=== PATIENT | female | born 1950 | race Caucasian/White ===

== ENCOUNTER 2018-02-14 15:42 | Emergency (ER) | payer OTHER, MEDICARE ==
[~2018-02-14] VITALS: Ht 157.5 cm; Wt 98.3 kg
--- OUTSIDE RECORDS SUMMARY | ~2018-02-14 | XMS | Clinical Summary ---
Demographics + + + | Address | [address] | | | [place] [address] | + + + | Home Phone | | + + + | Preferred Language | Unknown | + + + | Marital Status | | + + + | Adventism Affiliation | 1013 | + + + | Race | Unknown | + + + | Ethnic Group | Unknown | + + + Author + + + | Author | [facility] | | | and [place] | + + + | Organization | [facility] | | | and [place] | + + + | Address | Unknown | + + + | Phone | Unavailable | + + + Support + + + + + | Name | Relationship | Address | Phone | + + + + + | Sheyla Timmons | [address] | [address] | | | | | [place] | | | | | [address] | | + + + + + Care Team Providers + +------+ + | Care Lan Administrator Name | Role | Phone | + +------+ + | Mark Melendez DO | PP | | + +------+ + Allergies + + + + + + | Active Allergy | Reactions | Severity | Noted | Comments | | | | | Date | | + + + + + + | Ampicillin | Hives | Medium | | | + + + + + + | Latex | Other (See Comments) | Low | 04/03/20 | Redness & skin | | | | | 15 | burning with CPAP | | | | | | mask | + + + + + + | Morphine Sulfate | Other (See Comments) | Low | | Head aches | + + + + + + Current Medications + + + +---------+------+------+-------+ | Prescription | Sig. | Disp. | Refills | Star | End | Statu | | | | | | t | Date | s | | | | | | Date | | | + + + +---------+------+------+-------+ | potassium chloride | | | | 09/1 | | Activ | | SA (KLOR-CON M10) | | | | 4/20 | | e | | 10 MEQ tablet | | | | 12 | | | + + + +---------+------+------+-------+ | furosemide (LASIX) | | | | 09/1 | | Activ | | 20 mg tablet | | | | 4/20 | | e | | | | | | 12 | | | + + + +---------+------+------+-------+ | citalopram | | | | 09/1 | | Activ | | (CELEXA) 40 mg | | | | 4/20 | | e | | tablet | | | | 12 | | | + + + +---------+------+------+-------+ | diltiazem | | | | 09/1 | | Activ | | (CARDIZEM LA) 180 mg | | | | 4/20 | | e | | 24 hr tablet | | | | 12 | | | + + + +---------+------+------+-------+ | multivitamin | | | | / | | Activ | | (THERAGRAN) per | | | | 4/20 | | e | | tablet | | | | 12 | | | + + + +---------+------+------+-------+ | zolpidem (AMBIEN) | Take 10 mg by mouth | | | | | Activ | | 10 mg tablet | nightly as needed | | | | | e | | | for Sleep. | | | | | | + + + +---------+------+------+-------+ | hydrocortisone | Take 20 mg by mouth | | | | | Activ | | (CORTEF) 10 mg | Daily. | | | | | e | | tablet | | | | | | | + + + +---------+------+------+-------+ | prochlorperazine | Take 10 mg by mouth | | | | | Activ | | (COMPAZINE) 10 mg | every 6 hours as | | | | | e | | tablet | needed. | | | | | | + + + +---------+------+------+-------+ | esomeprazole | Take 80 mg by mouth | | | | | Activ | | (NEXIUM) 40 mg | every morning | | | | | e | | capsule | (before breakfast). | | | | | | + + + +---------+------+------+-------+ | 27-1 MG | Take 1 tablet by | | | | | Activ | | TABS | mouth Daily. | | | | | e | + + + +---------+------+------+-------+ | folic acid 1 mg | Take 1 mg by mouth | | | | | Activ | | tablet | Daily. | | | | | e | + + + +---------+------+------+-------+ | sucralfate | Take 1 g by mouth 4 | | | | | Activ | | (CARAFATE) 1 g | times daily. Patient | | | | | e | | tablet | states that she is | | | | | | | | taking once at night | | | | | | + + + +---------+------+------+-------+ | methocarbamol | Take 1 tablet by | 60 | 1 | 10/3 | | Activ | | (ROBAXIN) 750 mg | mouth every 6 hours | tablet | | 1/20 | | e | | tablet | as needed for Muscle | | | 15 | | | | | spasms. | | | | | | + + + +---------+------+------+-------+ | Lactulose | Take 15-30 mLs by | 240 mL | 0 | 10/3 | | Activ | | Encephalopathy 10 | mouth Daily as | | | 1/20 | | e | | g/15 mL SOLN | needed | | | 15 | | | | | (constipation). | | | | | | + + + +---------+------+------+-------+ | HYDROmorphone | Take 2.5-3 tablets | 120 | 0 | 11/3 | | Activ | | (DILAUDID) 4 MG | by mouth every 4 | tablet | | 0/20 | | e | | tabletIndications: | hours as needed for | | | 15 | | | | S/P lumbar fusion | Pain. | | | | | | + + + +---------+------+------+-------+ | celecoxib | Take 200 mg by mouth | | | | | Activ | | (CELEBREX) 200 mg | 2 times daily. | | | | | e | | capsule | | | | | | | + + + +---------+------+------+-------+ Active Problems + + + | Problem | Noted Date | + + + | Nocturnal hypoxemia due to obesity, refusing CPAP | 04/27/2015 | + + + | Opioid overuse causing sedation, pulmonary compromise | 04/27/2015 | + + + | Spondylolisthesis of lumbar region | 02/28/2015 | + + + | Lumbar stenosis with neurogenic claudication | 02/28/2015 | + + + | Lumbar radiculopathy | 02/28/2015 | + + + | Facet arthropathy, lumbar (HCC) | 02/28/2015 | + + + | S/P lumbar fusion | 02/28/2015 | + + + | [place] disease (HCC) | 02/28/2015 | + + + | Chronic, continuous use of opioids | 02/28/2015 | + + + | Morbid obesity with BMI of 40.0-44.9, adult ([facility]) | 02/28/2015 | + + + | Current use of steroid medication | 02/28/2015 | + + + | BACK PAIN | | + + + | SCIATICA | | + + + | REDUCTION MAMMOPLASTY, HX OF | | + + + + + | Overview: ICD-10 Record update | + + Family History + + +------+ + | Medical History | Relation | Name | Comments | + + +------+ + | Cancer | Father | | | + + +------+ + | Mental illness | Father | | | + + +------+ + | Heart attack | Mother | | | + + +------+ + | Arthritis | | | | + + +------+ + | Hypertension | | | | + + +------+ + + +------+ + + | Relation | Name | Status | Comments | + +------+ + + | Brother | | Alive | | + +------+ + + | Child | | Alive | | + +------+ + + | Child | | Alive | | + +------+ + + | Father | | | Suicide | | | | (Age | | | | | 73) | | + +------+ + + | Mother | | | IN | | | | (Age | | | | | 76) | | + +------+ + + | Sister | | Alive | | + +------+ + + | Sister | | Alive | | + +------+ + + Social History + +-------+ +--------+------+ | Tobacco Use | Types | Packs/Day | Years | Date | | | | | Used | | + +-------+ +--------+------+ | Never Smoker | | | | | + +-------+ +--------+------+ + +---+---+---+ | Smokeless Tobacco: | | | | | Never Used | | | | + +---+---+---+ + + +---------+ + | Alcohol Use | Drinks/We | oz/Week | Comments | | | ek | | | + + +---------+ + | Yes | 0 | 0.0 | drink every couple years | | | Standard | | | | | drinks or | | | | | | | | | | equivalen | | | | | t | | | + + +---------+ + + + + | Sex Assigned at | Date Recorded | | | | + + + | Not on file | | + + + Last Filed Vital Signs + + + + | Vital Sign | Reading | Time Taken | + + + + | Blood Pressure | 153/102 | 11/04/20151523 PDT | + + + + | Pulse | 91 | 11/04/20151523 PDT | + + + + | Temperature | 37.5 C (99.5 F) | 04/28/2015799 PST | + + + + | Respiratory Rate | 16 | 11/04/20151523 PDT | + + + + | Oxygen Saturation | 96% | 04/28/2015829 PST | + + + + | Inhaled Oxygen | - | - | | Concentration | | | + + + + | Weight | 96.6 kg (213 lb) | 11/04/20151523 PDT | + + + + | Height | 157.5 cm (5' 2") | 11/04/20151523 PDT | + + + + | Body Mass Index | 38.96 | 11/04/2015 1524 PDT | + + + + Plan of Treatment + + + + + | Health Maintenance | Due Date | Last Done | Comments | + + + + + | Hepatitis C | | | | | Screening | 9 | | | + + + + + | Vaccine: | | | | | Dtap/Tdap/Td (1 - | 8 | | | | Tdap) | | | | + + + + + | BREAST CANCER | | | | | SCREENING (MAMM Q2 | 9 | | | | YEARS 50-74) | | | | + + + + + | Colorectal Cancer | | | | | Screening | 9 | | | | (Colonoscopy) | | | | + + + + + | Vaccine: | | | | | Pneumococcal 65+ | 4 | | | | Low/Medium Risk (1 | | | | | of 2 - PCV13) | | | | + + + + + | Vaccine: Influenza | | | | | (#1) | 8 | | | + + + + + Implants + +------+--------+ +--------+--------+--------+ | Implanted | Type | Area | Manufacture | Device | Expira | Model | | | | | r | | tion | / | | | | | | Identi | Date | Serial | | | | | | fier | | / Lot | + +------+--------+ +--------+--------+--------+ | Graft Infuse Bone Kit Xxs - | | Right: | [employer] | | 11/21/ | [id number] | | [id number]: Qty: 1 on | | Spine | DANEK - DIV | | 2016 | 0 / | | 04/23/2015 by Alan Kramer, | | | [employer] | | | /[id number] | | MD | | Lumbar | - SFDK | | | [id number] | + +------+--------+ +--------+--------+--------+ | Jayesh Ti Prebent Lordtc 100mm - | | Right: | NUVASIVE - | | | [id number] | | [id number]: Qty: 2 | | Spine | NVSV | | | 0 / / | | on 04/23/2015 by Alan Kramer | | | | | | | | A, MD | | Lumbar | | | | | + +------+--------+ +--------+--------+--------+ | Screw Set - | | Right: | NUVASIVE - | | | [id number] | | [id number]: Qty: 8 on | | Spine | NVSV | | | 0 / / | | 04/23/2015 by Alan Kramer, | | | | | | | | MD | | Lumbar | | | | | + +------+--------+ +--------+--------+--------+ | Screw Polyax Prcpt 7.5x50mm - | | Right: | NUVASIVE - | | | [id number] | | [id number]: Qty: 3 | | Spine | NVSV | | | 0A / / | | on 04/23/2015 by Alan Kramer | | | | | | | | MD Brain | | Lumbar | | | | | + +------+--------+ +--------+--------+--------+ | Graft Infuse Bone Kit Xs - | | Right: | [employer]OR | | 03/24/ | [id number] | | [id number]: Qty: 1 on | | Spine | DANEK - DIV | | 2016 | 0 / | | 04/23/2015 by Alan Kramer, | | | [employer] | | | /[id number] | | MD | | Lumbar | - SFDK | | | [id number] | + +------+--------+ +--------+--------+--------+ | Putty [place] 10cc Dbm - | | Right: | OSTEOTECH - | | 01/21/ | [id number] | | [id number]: Qty: 1 | | Spine | OSTT | | 2018 | /[id number] | | on 04/23/2015 by Alan Kramer | | | | | | 0-025 | | A MD | | Lumbar | | | | /NA | + +------+--------+ +--------+--------+--------+ | Bone Chips Cancellous 30c | | Right: | [employer] [place] | | 09/01/ | [id number] | | 4-10 - [id number]: | | Spine | INC - LIAI | | 2020 | S | | Qty: 1 on 04/23/2015 by Williams, | | | | | | /[id number] | | Alan De La Paz MD | | Lumbar | | | | 5-028 | | | | | | | | / | + +------+--------+ +--------+--------+--------+ | Imp Spn Intbdy Xlw | | Right: | NUVASIVE - | | | [id number] | | [id number] - | | Spine | NVSV | | | 5 / / | | [id number]: Qty: 1 on | | | | | | | | 04/23/2015 by Alan Kramer, | | Lumbar | | | | | | | | | | | | | + +------+--------+ +--------+--------+--------+ | Tlif Oblique [id number] 12deg | | Right: | NUVASIVE - | | | 774683 | | - [id number]: Qty: 1 | | Spine | NVSV | | | 2 / / | | on 04/23/2015 by Alan Kramer | | | | | | | | MD Brain | | Lumbar | | | | | + +------+--------+ +--------+--------+--------+ | Screw Polyax Precept 6.5x50 - | | Right: | NUVASIVE - | | | 604124 | | [id number]: Qty: 2 | | Spine | NVSV | | | 0A / / | | on 04/23/2015 by Alan Kramer | | | | | | | | AMD | | Lumbar | | | | | + +------+--------+ +--------+--------+--------+ | Screw Polyax Prcpt 7.5x45mm - | | Right: | NUVASIVE - | | | [id number] | | [id number]: Qty: 1 | | Spine | NVSV | | | 5A / / | | on 04/23/2015 by Alan Kramer | | | | | | | | A, | | Lumbar | | | | | + +------+--------+ +--------+--------+--------+ | Screw Polyax Prcpt 8.5x40mm - | | Right: | NUVASIVE - | | | [id number] | | [id number]: Qty: 2 | | Spine | NVSV | | | 0A / / | | on 04/23/2015 by Alan Kramer | | | | | | | | MD Brain | | Lumbar | | | | | + +------+--------+ +--------+--------+--------+ Results Not on filefrom Last 3 Months Insurance + +--------+ +--------+ +---------+ | Payer | Benefi | Subscriber | Type | Phone | Address | | | t Plan | ID | | | | | | / | | | | | | | Group | | | | | + +--------+ +--------+ +---------+ | [place] | MEDICA | [id number] | Medica | [phone] | | | ID | | id | [phone] | | | | [place] | | | | | + +--------+ +--------+ +---------+ + +--------+ +--------+ + + | Guarantor Name | Accoun | Relation to | Date | Phone | Billing Address | | | t Type | Patient | of | | | | | | | | | | + +--------+ +--------+ + + | DELFIN SANDY | Person | Self | [birth year] Home: | [address] | | | [place] | | 1950 | [phone] | | | [address] | | | [phone] | [place] [address] | + +--------+ +--------+ + +
--- OUTSIDE RECORDS SUMMARY | ~2018-02-14 | XMS | Clinical Summary ---
Demographics + + + | Address | [address] | | | [place] [address] | + + + | Home Phone | | + + + | Preferred Language | Unknown | + + + | Marital Status | | + + + | Yazidism Affiliation | 1013 | + + + | Race | Unknown | + + + | Ethnic Group | Unknown | + + + Author + + + | Author | [facility] | | | and [place] | + + + | Organization | [facility] | | | and [...] [place] | | | | | [address] | | + + + + + Care Team Providers + +------+ + | Care Supervisor Rework Name | Role | Phone | + [...] | 02/28/2015 | + + + | [place] disease (HCC) | 02/28/2015 | + + + | Chronic, continuous use of opioids | 02/28/2015 | + + + | Morbid obesity with BMI of 40.0-44.9, adult ([facility]) | 02/28/2015 | + + + | [...] + + | Mother | | | [place] | | | | (Age | | [...] Right: | [employer] | | 11/21/ | [id number] | | [id number]: Qty: 1 on | | Spine | DANEK - DIV | | 2016 | 0 / | | 04/23/2015 by Alan Kramer, | | | [employer] | | | /[id number] | | MD | | Lumbar | - SFDK | | | [id number] | + +------+--------+ +--------+--------+--------+ | Jayesh Ti Prebent Lordtc 100mm - | | Right: | NUVASIVE - | | | [id number] | | [id number]: Qty: 2 | | Spine | NVSV | | | 0 / / | | on 04/23/2015 by Alan Kramer | | | | | | | | A, MD | | Lumbar | | | | | + +------+--------+ +--------+--------+--------+ | Screw Set - | | Right: | NUVASIVE - | | | [id number] | | [id number]: Qty: 8 on | | Spine | NVSV | | | 0 / / | | 04/23/2015 by Alan Kramer, | | | | | | | | MD | | Lumbar | | | | | + +------+--------+ +--------+--------+--------+ | Screw Polyax Prcpt 7.5x50mm - | | Right: | NUVASIVE - | | | [id number] | | [id number]: Qty: 3 | | Spine | NVSV | | | 0A / / | | on 04/23/2015 by Alan Kramer | | | | | | | | MD Brain | | Lumbar | | | | | + +------+--------+ +--------+--------+--------+ | Graft Infuse Bone Kit Xs - | | Right: | [employer]OR | | 03/24/ | [id number] | | [id number]: Qty: 1 on | | Spine | DANEK - DIV | | 2016 | 0 / | | 04/23/2015 by Alan Kramer, | | | [employer] | | | /[id number] | | MD | | Lumbar | - SFDK | | | [id number] | + +------+--------+ +--------+--------+--------+ | Putty [place] 10cc Dbm - | | Right: | OSTEOTECH - | | 01/21/ | 72778 | | [id number]: Qty: 1 | | Spine | OSTT | | 2018 | /[id number] | | on 04/23/2015 by Alan Kramer | | | | | | 0-025 | | A MD | | Lumbar | | | | /NA | + +------+--------+ +--------+--------+--------+ | Bone Chips Cancellous 30c | | Right: | [employer] [place] | | 09/01/ | [id number] | | 4-10 - [id number]: | | Spine | INC - LIAI | | 2020 | S | | Qty: 1 on 04/23/2015 by Williams, | | | | | | /[id number] | | Alan De La Paz MD | | Lumbar | | | | 5-028 | | | | | | | | / | + +------+--------+ +--------+--------+--------+ | Imp Spn Intbdy Xlw | | Right: | NUVASIVE - | | | [id number] | | [id number] - | | Spine | NVSV | | | 5 / / | | [id number]: Qty: 1 on | | | | | | | | 04/23/2015 by Alan Kramer, | | Lumbar | | | | | | | | | | | | | + +------+--------+ +--------+--------+--------+ | Tlif Oblique [id number] 12deg | | Right: | NUVASIVE - | | | [id number] | | - [id number]: Qty: 1 | | Spine | NVSV | | | 2 / / | | on 04/23/2015 by Alan Kramer | | | | | | | | MD Brain | | Lumbar | | | | | + +------+--------+ +--------+--------+--------+ | Screw Polyax Precept 6.5x50 - | | Right: | NUVASIVE - | | | [id number] | | [id number]: Qty: 2 | | Spine | NVSV | | | 0A / / | | on 04/23/2015 by Alan Kramer | | | | | | | | AMD | | Lumbar | | | | | + +------+--------+ +--------+--------+--------+ | Screw Polyax Prcpt 7.5x45mm - | | Right: | NUVASIVE - | | | [id number] | | [id number]: Qty: 1 | | Spine | NVSV | | | 5A / / | | on 04/23/2015 by Alan Kramer | | | | | | | | A, | | Lumbar | | | | | + +------+--------+ +--------+--------+--------+ | Screw Polyax Prcpt 8.5x40mm - | | Right: | NUVASIVE - | | | [id number] | | [id number]: Qty: 2 | | Spine | NVSV [...] +---------+ | [place]ICAID [place] | MEDICA | [id number] | Medica | [phone] | | | [...] | | | [address] | [place] [address] | + +--------+ +--------+ + +
[~2018-02-14 15:42] MED LIST: AMBIEN10 MG PO; BACTROBAN22 GM TP; CARAFATE1 GM PO; CARDIZEM CD180 MG PO; CELEBREX200 MG PO; CELEXA20 MG PO; CELEXA40 MG PO; CEPHALEXIN500 MG PO; CIPROFLOXACIN500 MG PO; CLINDAMYCIN HC300 MG PO; COZAAR100 MG PO; CYCLOBENZAPRINE10 MG PO; CYCLOBENZAPRINE5 MG PO; DIFLUCAN150 MG PO; DILAUDID8 MG PO; DILTIAZEM ER180 M1 PO; DILTIAZEM HCL120 MG PO; ERYTHROMYCIN3.5 GM; ESOMEPRAZOLE MA40 MG PO; ESTRACE1 MG PO; FIORICET 50-321 EACH PO; FOLIC ACID1 MG PO; GABAPENTIN300 MG PO; HYDROCORTISONE20 MG PO; HYDROMORPHONE HC8 MG PO; INVANZ1 G1 IV; KLOR-CON 1010 MEQ PO; LASIX20 MG PO; LASIX40 MG PO; LISINOPRIL40 MG PO; LOSARTAN POTAS100 MG PO; LYRICA50 MG PO; METROGEL60 GM TP; NEXIUM40 MG PO; NITROFURANTOIN100 MG PO; NORCO 10-325 T1 EACH PO; NORCO 7.5-3251 EACH PO; OMEPRAZOLE20 MG PO; OXYCODONE HCL5 MG PO; PRENATAL TABLE1 EAC1 PO; PROBIOTIC1 EAC1 PO; PROCHLORPERAZIN10 MG PO; TENORMIN100 MG PO; TETRACYCLINE H250 MG PO; VALTREX1000 MG PO; VITAMIN D250000 UNIT PO; VITAMIN K1 MG/0.5 M IM; VITAMIN K100 MCG PO; ZANAFLEX4 MG PO; ZESTRIL40 MG PO; ZINC SULFATE220 M1 PO; ZOLPIDEM TARTRA10 MG PO
== END 2018-02-14 17:00 | disposition home or self-care (01) ==
LOC: ED 15:42
DX: S81.811A Laceration without foreign body, right lower leg, initial encounter (principal); W01.198A Fall on same level from slipping, tripping and stumbling with subsequent striking against other object, initial encounter; I10 Essential (primary) hypertension; Z88.5 Allergy status to narcotic agent; Z88.1 Allergy status to other antibiotic agents; Z79.899 Other long term (current) drug therapy
CPT/HCPCS: 12005; 90471; 90715; 99282

== ENCOUNTER 2019-05-03 13:01 | Day surgery (SDC) | payer MEDICARE, OTHER ==
[~2019-05-03] VITALS: Ht 157.5 cm; Wt 88.9 kg
[2019-05-03] MEDS ORDERED: ADVIL200 MG PO (13:15)
[2019-05-03] MEDS ORDERED: VITAMIN D1000 UNIT PO (13:15)
--- NOTE | 2019-05-03 14:13 | NUR ---
05/03/19 1413 Ronda Agosto 1409-PATIENT ARRIVED TO PACU ON 2L NC LAYING LEFT LATERAL. ABDOMEN SOFT. AROUSES TO VERBAL STIMULI DENIES PAIN OR NAUSEA. PATIENT HAS SLEEP APNEA AT HOME DOES NOT USE CPAP
--- NOTE | 2019-05-04 09:22 | OR ---
[facility] [address], [place] [address] Signed DATE OF OPERATION: 05/03/2019 SURGEON: Janie Barry MD PREOPERATIVE DIAGNOSES: 1. History of sigmoid resection for diverticular disease. 2. History of chronic recurrent Clostridium difficile colitis (resolved). POSTOPERATIVE DIAGNOSIS: Polyps x3 and mild cecitis. PROCEDURES PERFORMED: 1. Total colonoscopy to cecum with biopsy of cecum and rectum. 2. Polypectomy x3 (cold morcellation technique). ANESTHESIA: Intravenous sedation, fentanyl 100 mcg, Versed 4 mg total. INDICATION: 69-year-old white woman, a patient of Dr. Emmanuel, underwent colon resection of the sigmoid for profound diverticular disease by me in the past. Prior to that, she had had chronic recurrent bouts of C difficile colitis. She has resolved that entirely. She is symptom-free and is here for surveillance colonoscopy. Her resection was in 2011. She is admitted to undergo colonoscopy. She understands the risks of bleeding, infection, and perforation. FINDINGS: The prep was excellent. Complete colonoscopy was undertaken to the cecum without question. The anastomosis was widely patent without sign of obstruction. There was mild cecitis, but no profound inflammation and no pseudomembranes. She had three small polyps all excised, two in the right colon, one in the transverse. DESCRIPTION OF PROCEDURE: The patient was brought to the endoscopy suite and placed in lateral decubitus position, given intravenous sedation to the point of slurred speech and nystagmus. Digital rectal examination was normal. The patient received hydrocortisone 100 mg IV preop as she does have underlying [place] disease as well as preoperative antibiotic based on joint replacement. Digital rectal examination was found to be normal. An Olympus video colonoscope was passed to the rectum and manipulated throughout the colon passing the anastomosis of the coloproctostomy without problem. The scope was advanced to the cecum Electronically Signed By: JANIE BARRY MD 05/04/19 0922 PATIENT NAME: DELFIN SANDY OPERATIVE REPORT DATE OF : 48 REPORT #: [id number] PHYSICIAN: JANIE BARRY MD PCP: GAVIN EMMANUEL MD REPORT IS CONFIDENTIAL AND NOT TO BE RELEASED WITHOUT AUTHORIZATION [facility] [address], [place] [address] Signed without problem. The ileocecal valve and appendiceal orifice were normal. The cecum itself had mild inflammation and biopsies obtained. The scope was withdrawn and two small polyps were seen in the right colon, both excised with cold morcellation technique. Further withdrawal showed another polyp in the transverse, this too was excised with cold morcellation technique. The scope was withdrawn further. No other abnormality was noted. A biopsy was taken of the rectum as it had mild inflammation, probably benign. Scope was removed and the patient was taken to recovery room in good condition. CONCLUDING DIAGNOSIS: Polyps x3, mild cecitis, probably of little clinical significance. PLAN: We will check pathology report. Repeat colonoscopy in 5 years would be recommended, sooner if symptoms. She will return to the ongoing care of Dr. Emmanuel. MD JAMAL Conroy/STEWL /[id number] cc: Gavin Emmanuel MD Copies: GAVIN EMMANUEL MD ~ Electronically Signed By: JANIE BARRY MD 05/04/19 0922 PATIENT NAME: DELFIN SANDY OPERATIVE REPORT DATE OF : 48 REPORT #: [id number] PHYSICIAN: JANIE BARRY MD PCP: GAVIN EMMANUEL MD REPORT IS CONFIDENTIAL AND NOT TO BE RELEASED WITHOUT AUTHORIZATION
--- NOTE | 2019-05-04 16:21 | PATH ---
[facility] [address], [place] [address] Signed SPECIMEN(S): A CECUM SPECIMEN(S): B ASCENDING SPECIMEN(S): C ASCENDING POLYPS SPECIMEN(S): D TRASNVERSE POLYP SPECIMEN(S): E RECTUM SPECIMEN SOURCE: A. CECUM B. ASCENDING C. ASCENDING POLYPS D. TRASNVERSE POLYP E. RECTUM CLINICAL HISTORY: Surveillance colonoscopy; history colectomy for diverticular disease. Postop Diag: Mild inflammation of cecum; colon polyps x3. MICROSCOPIC DESCRIPTION: A. Sections reveal a biopsy of colonic mucosa. The epithelial surface is intact but has slightly decreased mucus secreting ability. The glands are simple and tubular and reach all of the way to the muscularis mucosae. The lamina propria is not expanded and contains small numbers of plasma cells, lymphocytes and infrequent eosinophils. No acute inflammatory cells, excess intraepithelial lymphocytes, crypt abscesses, areas of fibrosis, granulomas or pseudomembranes are seen. There is no evidence of malignancy or atypia. B. Sections reveal a biopsy of colonic mucosa. The epithelial surface is intact and has retained mucus secreting ability. The lamina propria is mildly edematous and contains small numbers of plasma cells, lymphocytes and infrequent eosinophils. No acute inflammatory cells, goblet cells, Paneth cells or bacteria morphologically consistent with Helicobacter are seen on HE stained sections. There is no evidence of malignancy or atypia. C-E. Histologic sections of all submitted blocks are examined by light microscopy. These findings, together with the gross examination, support the pathologic diagnosis. LALA:chase FINAL PATHOLOGIC DIAGNOSIS: A. Mucosa, cecum, biopsy: - No microscopic pathologic diagnosis. PATIENT NAME: DELFIN SANDY PATHOLOGY DATE OF : 48 REPORT #: [id number] PHYSICIAN: RO HOPE PCP: GAVIN EMMANUEL MD REPORT IS CONFIDENTIAL AND NOT TO BE RELEASED WITHOUT AUTHORIZATION [facility] [address], [place] [address] Signed B. Mucosa, ascending colon, biopsy: - Mild mucosal edema without significant inflammation. C. Mucosa, ascending colon, biopsy: - Tubular adenoma. D. Mucosa, transverse colon, biopsy: - Tubular adenoma. E. Mucosa, rectum, biopsy: - No microscopic pathologic diagnosis. LJA:cml:C2NR GROSS DESCRIPTION: Five specimens are received in five containers, labeled "MF." A. The specimen, labeled "MF, cecum biopsy," is received in formalin and consists of a single 0.2 cm antoine fragment. Specimen is entirely submitted in cassette (A1). B. The specimen, labeled "MF, ascending colon biopsy," is received in formalin and consists of two, 0.2 and 0.3 cm antoine tissue fragments. Specimen is entirely submitted in cassette (B1). C. The specimen, labeled "MF, ascending colon polyps," is received in formalin and consists of two, 0.1 and 0.2 cm antoine tissue fragments. Specimen is entirely submitted in cassette (C1). D. The specimen, labeled "MF, transverse colon polyp," is received in formalin and consists of two, 0.2 and 0.3 cm antoine tissue fragments. Specimen is entirely submitted in cassette (D1). E. The specimen, labeled "MF, rectal biopsy," is received in formalin and consists of a single 0.2 cm antoine tissue fragment. Specimen is entirely submitted in cassette (E1). AM (under the direct supervision of a pathologist) The Gross Description was prepared using a voice recognition system. The report was reviewed for accuracy; however, sound-alike word errors, addition and/or deletions may occur. If there is any question about this report, please contact Client Services. PERFORMING LABORATORY: The technical component was performed by [id number] [address] (Billing Clinician: Loree Giraldo MD; CLIA# [id number]). Professional interpretation was performed by [facility], [address] [address] (Billing Clinician: Maximus Roman MD; CLIA# [id number]). PATIENT NAME: DELFIN SANDY PATHOLOGY DATE OF : 48 REPORT #: [id number] PHYSICIAN: RO HOPE PCP: GAVIN EMMANUEL MD REPORT IS CONFIDENTIAL AND NOT TO BE RELEASED WITHOUT AUTHORIZATION [facility] [address] [place], [place] [address] Signed Diagnostician: Maximus Roman MD Pathologist Electronically Signed 05/04/2019 Copies: ~ PATIENT NAME: DELFIN SANDY PATHOLOGY DATE OF : 48 REPORT #: [id number] PHYSICIAN: RO PATHOLOGY PCP: GAVIN EMMANUEL MD REPORT IS CONFIDENTIAL AND NOT TO BE RELEASED WITHOUT AUTHORIZATION
== END 2019-05-03 14:52 | disposition home or self-care (01) ==
LOC: OPS 13:01 → DS 13:03 → OPS 14:00
PROVIDERS: Surgery
PROC: 0DBL8ZZ Excision of Transverse Colon, Via Natural or Artificial Opening Endoscopic (ICD-10-PCS; 2019-05-03)
PROC: 0DBH8ZX Excision of Cecum, Via Natural or Artificial Opening Endoscopic, Diagnostic (ICD-10-PCS; 2019-05-03)
PROC: 0DBP8ZX Excision of Rectum, Via Natural or Artificial Opening Endoscopic, Diagnostic (ICD-10-PCS; 2019-05-03)
PROC: 0DBK8ZZ Excision of Ascending Colon, Via Natural or Artificial Opening Endoscopic (ICD-10-PCS; principal; 2019-05-03 14:00)
DX: Z12.11 Encounter for screening for malignant neoplasm of colon (principal); D12.2 Benign neoplasm of ascending colon; D12.3 Benign neoplasm of transverse colon; K52.9 Noninfective gastroenteritis and colitis, unspecified; I10 Essential (primary) hypertension; Z86.010 Personal history of colon polyps; E66.3 Overweight; E27.40 Unspecified adrenocortical insufficiency; M54.5 Low back pain; G89.29 Other chronic pain; K21.0 Gastro-esophageal reflux disease with esophagitis; Z87.19 Personal history of other diseases of the digestive system; Z90.49 Acquired absence of other specified parts of digestive tract; Z86.19 Personal history of other infectious and parasitic diseases; Z88.0 Allergy status to penicillin; Z88.5 Allergy status to narcotic agent; Z98.890 Other specified postprocedural states; Z68.35 Body mass index [BMI] 35.0-35.9, adult
CPT/HCPCS: 99153; G0500; J0690; J1720; J2250; J3010; J7121

== ENCOUNTER 2024-12-22 09:43 | Emergency (ER) | payer MEDICARE, OTHER ==
[~2024-12-22] VITALS: Ht 157.5 cm; Wt 98.0 kg
[~2024-12-22 09:43] MED LIST changes: +ADVIL200 MG PO; +VITAMIN D1000 UNIT PO
[2024-12-22] MEDS ORDERED: FAMOTIDINE20 MG PO (09:56)
[2024-12-22] MEDS ORDERED: ATORVASTATIN CA20 MG PO (09:56)
[2024-12-22] MEDS ORDERED: METHYLPREDNISOLO4 M1 PO (10:35)
[2024-12-22 10:45] VITALS: BP 147/64
[2024-12-22] MEDS ORDERED: IBUPROFEN 600 MG TAB PO ONE (10:45)
[2024-12-22] MEDS ORDERED: predniSONE 20 MG TAB PO ONE (10:45)
[2024-12-22] MEDS ORDERED: ACETAMINOPHEN 500 MG TAB PO ONE (10:45)
== END 2024-12-22 10:45 | disposition home or self-care (01) ==
LOC: ED 09:43
DX: M54.50 Low back pain, unspecified (principal); G89.29 Other chronic pain; I10 Essential (primary) hypertension; Z79.899 Other long term (current) drug therapy; Z88.5 Allergy status to narcotic agent; Z88.1 Allergy status to other antibiotic agents
CPT/HCPCS: 99283; A9270; J7512